=== PATIENT | female | born 2005 | race African-American/Black ===

== ENCOUNTER 2023-08-14 20:05 | Emergency (ER) | payer OTHER ==
[2023-08-14 21:34] LABS: SARS-CoV-2 NAA Rapid Test Not Detected (NotDetected)
== END 2023-08-14 21:41 | disposition home or self-care (01) ==
LOC: CSHERS 20:05
DX: J02.9 Acute pharyngitis, unspecified (principal)
CPT/HCPCS: 99283

== ENCOUNTER 2024-01-26 19:06 | Emergency (ER) | payer OTHER ==
[2024-01-26 20:30] LABS: Influenza A by NAA Not Detected (NotDetected); Influenza B by NAA Not Detected (NotDetected); SARS-CoV-2 NAA Rapid Test Not Detected (NotDetected)
[2024-01-26] MEDS ORDERED: diphenhydrAMINE 50 MG/ML VIAL ONE (20:53)
[2024-01-26] MEDS ORDERED: Prochlorperazine 10 MG/2 ML VIAL ONE (20:54)
== END 2024-01-26 22:25 | disposition home or self-care (01) ==
LOC: CSHERS 19:06
DX: B34.9 Viral infection, unspecified (principal); G43.909 Migraine, unspecified, not intractable, without status migrainosus; Z75.3 Unavailability and inaccessibility of health-care facilities
CPT/HCPCS: 96372; 99284; J0780; J1200